=== PATIENT | female | born 1950 | race Hispanic/Latino ===

== ENCOUNTER 2021-05-26 06:25 | Day surgery (SDC) | payer MEDICARE ==
[2021-05-26] MEDS ORDERED: SODIUM CHLORIDE 0.9% 500 ML 500 ML IV SCH (07:00)
[2021-05-26] MEDS ORDERED: ASPIRIN EC 325 MG TAB PO ONE (07:16)
[2021-05-26 07:39] LABS: INR 0.97 (0.87-1.13)
[2021-05-26 07:44] LABS: Basophils # (Auto) 0.1 K/mm3 (0.0-0.1); Basophils % (Auto) 0.8 % (0.0-1.8); Eosinophils # (Auto) 0.3 K/mm3 (0.0-0.4); Eosinophils % (Auto) 3.5 % (0.0-4.3); Hematocrit 43.7 % (30.3-42.9); Hemoglobin 14.4 gm/dl (10.1-14.3); Lymphocytes # (Auto) 1.3 K/mm3 (1.2-5.4); Lymphocytes % (Auto) 15.9 % (13.4-35.0); Mean Corpuscular HGB Conc 33 % (30-34); Mean Corpuscular Volume 97 fl (79-97); Monocytes # (Auto) 0.7 K/mm3 (0.0-0.8); Monocytes % (Auto) 8.9 % (0.0-7.3); Platelet Count 152 K/mm3 (140-440); Red Cell Distribution Width 13.8 % (13.2-15.2)
[2021-05-26 08:32] LABS: BUN/Creatinine Ratio 11; Blood Urea Nitrogen 9 mg/dL (7-17); Hemolysis Index 2
[2021-05-26] MEDS ORDERED: POTASSIUM CHLORIDE ER 20 MEQ TAB PO ONE ×2 (08:40→08:42)
[2021-05-26] MEDS ORDERED: HEPARIN/NS 5000 UNIT/500ML 1,000 ML IR ONE (09:05)
[2021-05-26] MEDS ORDERED: MIDAZOLAM 2 MG/2 ML INJ ONE (09:06)
[2021-05-26] MEDS ORDERED: VERAPAMIL 5 MG/2 ML INJ ONE (09:06)
[2021-05-26] MEDS ORDERED: HEPARIN 10,000 UNITS/10 ML VIAL ONE (09:06)
[2021-05-26] MEDS ORDERED: fentaNYL 100 MCG/2 ML INJ ONE (09:06)
[2021-05-26] MEDS ORDERED: LIDOCAINE (1%) 10 MG/1 ML VIAL 20 ML MDV ONE (09:07)
[2021-05-26] MEDS ORDERED: NITROGLYCERIN SYRINGE 3 ML ONE (09:07)
[2021-05-26] MEDS ORDERED: fentaNYL 100 MCG/2 ML INJ IV ONE (09:31)
[2021-05-26] MEDS ORDERED: MIDAZOLAM 2 MG/2 ML INJ IV ONE (09:31)
[2021-05-26] MEDS ORDERED: LIDOCAINE (1%) 10 MG/1 ML VIAL 20 ML MDV INFILTRATI ONE (09:32)
[2021-05-26] MEDS ORDERED: NITROGLYCERIN 600 MCG/3 ML SYRINGE ART-SHEATH ONE (09:34)
[2021-05-26] MEDS ORDERED: HEPARIN 10,000 UNITS/10 ML VIAL ART-SHEATH ONE (09:34)
[2021-05-26] MEDS ORDERED: VERAPAMIL 5 MG/2 ML INJ ART-SHEATH ONE (09:34)
--- NOTE | 2021-05-26 10:07 | Cardiac Catherization Report ---
DATE OF SERVICE: 05/26/2021 PROCEDURE: Left heart catheterization. CLINICAL INFORMATION: This is a 70-year-old female who has hypertension, hyperlipidemia, smoker, had markedly abnormal stress test prior to right shoulder replacement, is here for a left heart catheterization. Left heart catheterization performed via the right radial artery done with moderate sedation started at 9:30, finished at 9:45 for 15 minutes of moderate sedation. A 6-Slovak radial sheath was inserted in the right radial artery, sterile technique and local anesthesia. DESCRIPTION OF PROCEDURE: Left system engaged with JL3.5 catheter. There is calcification of left main, which is a medium caliber vessel, is patent. LAD ostial 100%. Ramus small to medium caliber vessel has a proximal 70%. Circ is a small to medium caliber vessel, is patent. Mild luminal irregularities. OM1 is a medium caliber vessel, it is patent with mild luminal irregularities. RCA engaged with JR4 is a large, dominant vessel, proximally patent, mid diffuse 40%, distal patent. Mild luminal irregularities. PLV small to medium caliber patent. PDA, medium caliber patent. We see extensive collaterals feeding at the end of the PDA into the LAD all the way up to the proximal LAD, small to medium caliber vessel. LV-gram done in BURT and TURCIOS view shows normal LV function, EF 55%-60%. LVEDP 13 mmHg, LV is 137, aortic is 137/73. No gradient across the aortic valve on pullback. A 5-Slovak catheters all taken over guidewire. The 6-Slovak radial sheath was discontinued. Radial band applied. No hematoma, no bleeding. SUMMARY: Left main patent. Mild calcification. LAD ostial 100%. Ramus proximal 70%. Circ patent, OM1 patent. RCA, proximal patent, mid diffuse 40%, distal patent. PDA patent with extensive right to left collaterals feeding the LAD all the way up to the proximal small to medium caliber LAD with normal LV function. RECOMMENDATIONS: The patient will be referred for bypass surgery, RIVERA to LAD and SVG to ramus. Discussed this with the patient and the patient's family. TID: [id number] RECEIPT: [id number] DOMITILA/MARY
[2021-05-26] MEDS ORDERED: HYDROcodone/ACETAMINOPHEN 5-325 MG TAB PO PRN (11:33)
[2021-05-26] MEDS ORDERED: traMADol 50 MG TAB PO PRN (12:00)
--- NOTE | 2021-05-26 12:03 | Short Stay Summary ---
Short Stay Documentation Date of service: 05/26/21 - History H&P: obtained from office - Allergies and Medications Current Medications: Allergies Sulfa (Sulfonamide Antibiotics) Allergy (Verified 05/26/21 06:48) Anaphylaxis Home Medications Medication Instructions Recorded Confirmed Last Taken Type Aspirin EC [Halfprin EC] 81 mg PO QDAY 05/26/21 05/26/21 05/25/21 History Duloxetine HCl [Drizalma Sprinkle] 60 mg PO DAILY 05/26/21 05/26/21 05/25/21 History Fluticasone/Umeclidin/Vilanter 1 puff INHALATION DAILY 05/26/21 05/26/21 05/25/21 History [Trelegy Ellipta 200-62.5-25] Gabapentin [Neurontin] 600 mg PO BID 05/26/21 05/26/21 05/25/21 History Glucosam/Garrett-Msm1/C/Jluis/Bosw 1 each PO DAILY 05/26/21 05/26/21 05/25/21 History [Osteo Bi-Flex Caplet] Nebivolol HCl [Bystolic] 10 mg PO QDAY 05/26/21 05/26/21 Unknown History Raloxifene HCl [Evista] 60 mg PO DAILY 05/26/21 05/26/21 05/25/21 History Rosuvastatin Calcium [Crestor] 10 mg PO DAILY 05/26/21 05/26/21 05/25/21 History amLODIPine [Norvasc] 10 mg PO DAILY 05/26/21 05/26/21 05/26/21 History buPROPion HCL [Bupropion HCl Sr] 150 mg PO BID 05/26/21 05/26/21 05/25/21 History traZODone [Desyrel] 150 mg PO QHS 05/26/21 05/26/21 05/25/21 History Active Medications Hydrocodone Bitart/Acetaminophen (Hydrocodone/Acetaminophen 5-325 Mg Tab) 1 each PO Q4H PRN PRN Reason: Pain, Moderate (4-6) Stop: 05/26/21 16:00 Sodium Chloride (Nacl 0.9% 500 Ml) 500 mls @ 50 mls/hr IV DIRECT SILVANA Stop: 05/26/21 16:59 Last Admin: 05/26/21 08:48 Dose: 50 mls/hr Tramadol HCl (Tramadol 50 Mg Tab) 50 mg PO Q4H PRN PRN Reason: Pain, Mild (1-3) - Physical exam Integumentary: other (Dressing clean dry and intact no signs of bleeding or hematoma) - Brief post op/procedure progress note Date of procedure: 05/26/21 Pre-op diagnosis: Abnormal stress test Post-op diagnosis: other (Coronary artery disease) Anesthesia: local Estimated blood loss: minimal - Hospital course Hospital course: Patient presented today for cardiac cath. Patient found to have patent left main with mild calcification. LAD also 100%. Ramus proximal 70%. Circumflex patent. RCA proximal patent, mild diffuse 40% distal pain. 86 patient with extensive collaterals. Patient will be referred for bypass surgery. Patient currently stable. Plan of care discussed with patient and patient's family patient tolerated procedure well with no complication - Disposition Condition at discharge: Good Disposition: 01 HOME / SELF CARE / HOMELESS - Discharge Diagnoses (1) Hypertension Status: Acute (2) Coronary artery disease Status: Acute (3) Hyperlipidemia Status: Acute Short Stay Discharge Plan Activity: advance as tolerated Diet: low fat, low cholesterol, low salt Wound: keep clean and dry, per your surgeon's advice Additional Instructions: Patient will follow up with Dr. Hammond on 06/04/2021 @ 9:30am in our [place] location in regards to bypass surgery. Phone number [phone] Patient has a follow up with Dr. PORTIA Hogan on 06/02/2021 @11am at our [place] location Phone number [phone] Follow up with: PRIMARY CAREMD [Primary Care Provider] - 7 Days Forms: CardCath PCI D/C Instructions
[2021-05-26 15:33] VITALS: BP 151/82
--- NOTE | 2021-05-28 14:09 | Electrocardiograph Report ---
[facility] Test Date: 2021-05-26 Test Time: 07:40:02 Pat Name: GABBY LOMAX Department: Room: Gender: F [employer]: MYESHA : 1950 Requested By: PENNY ARORA Order Number: [id number] Reading MD: Meli Ma Measurements Intervals [place] Rate: 72 P: 56 TN: 169 QRS: 3 QRSD: 97 T: 43 QT: 411 QTc: 450 Interpretive Statements Sinus rhythm Anteroseptal infarct, age indeterminate No previous ECG available for comparison Electronically Signed On 05-28-2021 14:09:29 EDT by Meli Ma
== END 2021-05-26 15:15 | disposition home or self-care (01) ==
LOC: CATHLABREC 06:25
PROVIDERS: ATTEND Internal Medicine
DX: R94.39 Abnormal result of other cardiovascular function study (principal); I25.10 Atherosclerotic heart disease of native coronary artery without angina pectoris; E78.49 Other hyperlipidemia; I10 Essential (primary) hypertension; F17.210 Nicotine dependence, cigarettes, uncomplicated; J44.9 Chronic obstructive pulmonary disease, unspecified; M19.90 Unspecified osteoarthritis, unspecified site; Z79.899 Other long term (current) drug therapy; Z79.82 Long term (current) use of aspirin; Z88.2 Allergy status to sulfonamides; Z90.49 Acquired absence of other specified parts of digestive tract; Z87.442 Personal history of urinary calculi; Z85.828 Personal history of other malignant neoplasm of skin
CPT/HCPCS: 36415; 80048; 85025; 85610; 85730; 93005; 93458; 99156; C1894; J1644; J1815; J2250; J3010; J3490; J7040; Q9967